=== PATIENT | female | born 1985 | race Caucasian/White ===

== ENCOUNTER 2019-08-05 12:19 | Day surgery (SDC) | payer OTHER ==
[2019-08-03 13:35] LABS: BASOPHILS # (AUTO) 0.02 x10^3/uL (0-0.1); BASOPHILS % (AUTO) 0 % (0-1); EOSINOPHILS # (AUTO) 0.04 x10^3/uL (0-0.4); EOSINOPHILS % (AUTO) 1 % (1-7); LYMPHOCYTES % (AUTO) 23 % (22-44); MD NO; MEAN CORPUSCULAR HEMOGLOBIN 31.6 pg (27.0-34.8); MEAN CORPUSCULAR HGB CONC 33.2 g/dL (32.4-35.8); MONOCYTES # (AUTO) 0.32 x10^3/uL (0.2-0.8); MONOCYTES % (AUTO) 5 % (2-9); NEUTROPHILS # (AUTO) 4.95 x10^3/uL (1.8-6.8); NEUTROPHILS % (AUTO) 71 % (42-75); PLATELET COUNT 231 x10^3/uL (130-400); RED BLOOD COUNT 4.53 x10^6/uL (3.82-5.3); RED CELL DISTRIBUTION WIDTH 12.5 % (9.6-15.2)
[2019-08-03 13:43] LABS: ALANINE AMINOTRANSFERASE 23 U/L (12-78); ALBUMIN 4.2 g/dL (3.4-5.0); ANION GAP 5 mmol/L (5-15); CALCIUM 8.6 mg/dL (8.5-10.1); CHLORIDE 108 mmol/L (98-107); CREATININE 0.82 mg/dL (0.55-1.02); MICROSCOPIC NOT IND
[2019-08-03 13:47] LABS: ALKALINE PHOSPHATASE 59 U/L (45-117); BILIRUBIN,TOTAL 0.5 mg/dL (0.2-1.0); TOTAL PROTEIN 7.7 g/dL (6.4-8.2)
[2019-08-03 13:48] LABS: CULTURE INDICATED? NO
[~2019-08-05] VITALS: Ht 162.6 cm; Wt 68.8 kg
[~2019-08-05 12:19] MED LIST: ADAP45GE3 TP; BUPIVACAINE/PF 0.25% ONE; IBUP-1902 PO; MULT-658 PO; OMEG1CAP34 PO
[2019-08-05] MEDS ORDERED: LACTATED RINGERS 1,000 ML IV SCH (12:30)
[2019-08-05 12:47] VITALS: BP 108/73
[2019-08-05] MEDS ORDERED: FENTANYL PF 100 MCG/2ML ONE (13:38)
[2019-08-05] MEDS ORDERED: MIDAZOLAM 1 MG/ML, 2ML ONE (13:38)
[2019-08-05] MEDS ORDERED: SUGAMMADEX 200 MG/2 ML IVPush ONE (13:58)
[2019-08-05] MEDS ORDERED: ROCURONIUM 10 MG/ML,10ML ONE (13:58)
[2019-08-05] MEDS ORDERED: ONDANSETRON 2MG/ML, 2ML ONE (13:58)
[2019-08-05] MEDS ORDERED: PROPOFOL 10 MG/ML, 20ML ONE (13:58)
[2019-08-05] MEDS ORDERED: KETOROLAC 30 MG/1 ML ONE (13:58)
[2019-08-05] MEDS ORDERED: DEXAMETHASONE 4 MG/ML, 1ML ONE (13:58)
[2019-08-05] MEDS ORDERED: PROPOFOL 10 MG/ML, 50ML ONE (13:58)
[2019-08-05] MEDS ORDERED: CEFAZOLIN 1,000 MG ONE (13:58)
[2019-08-05] MEDS ORDERED: BUPIVACAINE/PF-EPI 0.25% 1:200K INFIL ONE (14:26)
[2019-08-05] MEDS ORDERED: KETOROLAC 30 MG/1 ML IV PRN (14:30)
[2019-08-05] MEDS ORDERED: hydrALAzine 20 MG/ML, 1ML IV PRN (14:30)
[2019-08-05] MEDS ORDERED: FENTANYL PF 100 MCG/2ML IV PRN (14:30)
[2019-08-05] MEDS ORDERED: LABETALOL 5MG/ML, 20ML IV PRN (14:30)
[2019-08-05] MEDS ORDERED: MEPERIDINE/PF 25MG/0.5ML IVPush PRN (14:30)
[2019-08-05] MEDS ORDERED: DIAZEPAM 5 MG/ML, 2ML IVPush PRN (14:30)
[2019-08-05] MEDS ORDERED: PROMETHAZINE 25 MG/ML, 1ML IV PRN (14:30)
[2019-08-05] MEDS ORDERED: ALBUTEROL SULFATE 2.5 MG/3 ML NPPB PRN (14:30)
[2019-08-05] MEDS ORDERED: OXYcodone 5 MG/5 ML ORAL.SOL UDC PO PRN (14:30)
[2019-08-05] MEDS ORDERED: ACETAMINOPHEN 325 MG TABLET PO PRN (14:30)
[2019-08-05] MEDS ORDERED: HYDROmorphone 2 MG/ML, 1ML IVPush PRN (14:30)
[2019-08-05] MEDS ORDERED: ACETAMINOPHEN 650 MG/20.3 ML UDC ONE (14:59)
== END 2019-08-05 16:40 | disposition home or self-care (01) ==
LOC: OUT 12:19
PROVIDERS: ATTEND Obstetrics & Gynecology
DX: R10.2 Pelvic and perineal pain (principal); D25.2 Subserosal leiomyoma of uterus; Z79.899 Other long term (current) drug therapy; Z88.2 Allergy status to sulfonamides; Z98.890 Other specified postprocedural states; Z80.3 Family history of malignant neoplasm of breast; Z82.49 Family history of ischemic heart disease and other diseases of the circulatory system
CPT/HCPCS: 36415; 49320; 80053; 81003; 84702; 85025; 86850; 86900; J0690; J1100; J1885; J2250; J2405; J2704; J3010; J3490

== ENCOUNTER 2019-08-20 18:25 | Emergency (ER) | payer OTHER ==
[~2019-08-20] VITALS: Ht 162.6 cm; Wt 76.9 kg
[~2019-08-20 18:25] MED LIST changes: -BUPIVACAINE/PF 0.25% ONE
[2019-08-20] MEDS ORDERED: PROPOFOL 10 MG/ML, 20ML ONE (18:59)
[2019-08-20] MEDS ORDERED: PROPOFOL 10 MG/ML, 20ML IVPush ONE ×2 (19:00→20:00)
[2019-08-20] MEDS ORDERED: SODIUM CHLORIDE FLUSH 10ML SYR IVF ONE (19:00)
--- NOTE | 2019-08-20 19:20 | NUR ---
received report from BAM Perez. consent signed for right shoulder closed reduction with procedural sedation.
--- NOTE | 2019-08-20 19:26 | NUR ---
procedure and sedation started.
--- NOTE | 2019-08-20 19:31 | NUR ---
procedure ended. shoulder immobilizer applied. VSS
[2019-08-20 19:40] VITALS: BP 114/66
--- NOTE | 2019-08-20 19:45 | NUR ---
patient awake, VSS. talking to her friend.
--- NOTE | 2019-08-20 20:15 | NUR ---
patient awake and alert. states " a lot better now ". MD aware.
--- NOTE | 2019-08-20 20:41 | NUR ---
patient discharged with prescription and instruction. verbalized understanding.
== END 2019-08-20 20:45 | disposition home or self-care (01) ==
LOC: ED 20:00
DX: S43.004A Unspecified dislocation of right shoulder joint, initial encounter (principal); W01.0XXA Fall on same level from slipping, tripping and stumbling without subsequent striking against object, initial encounter; Y93.89 Activity, other specified; Y92.009 Unspecified place in unspecified non-institutional (private) residence as the place of occurrence of the external cause; Y99.8 Other external cause status
CPT/HCPCS: 23650; 73030; 73080; 99285; J2704